=== PATIENT | male | born 1960 | race Asian ===

== ENCOUNTER 2023-06-18 09:43 | Inpatient (IN) | payer MEDICARE, MEDICAID ==
[2023-06-18] VITALS (50 sets, daily range): BP systolic 110–160; BP diastolic 64–95; PULSE 62–89; RESP 11–22; TEMP 98–98.5
[~2023-06-18] VITALS: Ht 162.6 cm; Wt 73.5 kg
[2023-06-18 09:55] LABS: HEMATOCRIT. 32.1 % (42.0-52.0); HEMOGLOBIN. 10.4 g/dL (14.0-18.0); MEAN CORPUSCULAR HEMOGLOBIN 27.1 pg (28.0-32.0); MEAN CORPUSCULAR HGB CONC 32.5 g/dL (31.0-37.0); MEAN CORPUSCULAR VOLUME 83.4 fL (80.0-94.0); MEAN PLATELET VOLUME 7.9 fl (7.4-10.4); PLATELET 524 x1000/uL (130-400); RED BLOOD CELL COUNT 3.85 mill/uL (4.7-6.1); WHITE BLOOD COUNT 23.7 x1000/uL (4.5-11.0)
[2023-06-18 10:10] LABS: DIFFERENTIAL COMMENT 1
[2023-06-18] MEDS ORDERED: LIDOCAINE HCL 1% 10 MG/ML 10ML VIAL ONE (10:17)
[2023-06-18] MEDS ORDERED: IODIXANOL 320MG/ML 100 ML BOTTLE IV ONE (10:17)
[2023-06-18] MEDS ORDERED: HEPARIN 1000 UNITS/ML 10ML ONE (10:17)
[2023-06-18] MEDS ORDERED: FENTANYL CITRATE/PF 50MCG/ML 2ML VIAL ONE (10:17)
[2023-06-18] MEDS ORDERED: MIDAZOLAM HCL 2 MG/2 ML VIAL ONE (10:17)
[2023-06-18 10:30] LABS: CHLORIDE 108 mEq/L (98-107); INDEX HEMOLYSI 1 (1-3); INDEX ICTERIC 1 (1-4); INDEX LIPEMIC 1 (1-3); SODIUM 134 mEq/L (136-145)
[2023-06-18 10:40] LABS: MICROCYTOSIS 1+; PLATELET ESTIMATE INCREASED
[2023-06-18 10:41] LABS: ALANINE AMINOTRANSFERASE 17 IU/L (13-61); ALBUMIN 2.4 g/dL (3.4-5.0); ASPARTATE AMINOTRANSFERASE 27 IU/L (15-37); BILIRUBIN TOTAL 0.3 mg/dL (0.1-1.0); CALCIUM 8.5 mg/dL (8.5-10.1); CARBON DIOXIDE 16 mEq/L (21-32); GLUCOSE 164 mg/dL (70-105); NT PRO B-TYPE NATRIURETIC PEP 2084 pg/mL (5-125); PROTEIN TOTAL 7.6 g/dL (6.0-8.3); ROULEAUX 1+; UREA NITROGEN BLOOD 54 mg/dL (7-21)
[2023-06-18 10:47] LABS: TROPONIN I HIGH SENSITIVITY 2962 ng/L (<78)
[2023-06-18] MEDS ORDERED: EPTIFIBATIDE 2 MG/ML 10ML VIAL IV ONE (10:56)
[2023-06-18] MEDS ORDERED: CLOPIDOGREL 75MG TABLET ONE (11:22)
[2023-06-18] MEDS ORDERED: CLOPIDOGREL 75MG TABLET PO NR (11:22)
[2023-06-18] MEDS ORDERED: ATROPINE SULFATE 1MG/10ML SYR IV PRN (11:30)
[2023-06-18] MEDS ORDERED: MORPHINE SULFATE 2 MG/ML CPJ (NOT FOR IM USE) IV PRN (11:30)
[2023-06-18] MEDS ORDERED: SODIUM CHLORIDE 0.45% 1,000 ML IV SCH (12:00)
[2023-06-18] MEDS ORDERED: ONDANSETRON HCL 4MG/2ML INJ IV PRN (12:15)
[2023-06-18] MEDS ORDERED: GUAIFENESIN 200MG/10ML SUGAR FREE UDC PO PRN (12:15)
[2023-06-18] MEDS ORDERED: HYDROCODONE/ACETAMINOPHEN 5/325MG TABLET PO PRN (12:15)
[2023-06-18] MEDS ORDERED: DIPHENHYDRAMINE 50MG/ML VIAL IV PRN (12:15)
[2023-06-18] MEDS ORDERED: DOCUSATE SODIUM 100MG CAPSULE PO PRN (12:15)
[2023-06-18] MEDS ORDERED: TRAMADOL 50MG TABLET PO PRN (12:15)
[2023-06-18] MEDS: TAMSULOSIN HCL 0.4MG SR CAPSULE PO SCH (12:35)
[2023-06-18] MEDS ORDERED: NALOXONE HCL 0.4MG/ML VIAL IV PRN (12:45)
[2023-06-18 13:36] LABS: BG BASE EXCESS -9.3 mmol/L (-2.0-2.0); BG CARBOXYHEMOGLOBIN 0.3 % (0.5-1.5); BG DEOXYHEMOGLOBIN 3.2 % (0.0-5.0); BG FRACTION INSPIRED OXYGEN 21; BG HCO3 ACT 14.9 mmol/L (22.0-26.0); BG METHEMOGLOBIN 0.3 % (0.0-1.5); BG OXYGEN SATURATION 96.8 % (92.0-98.5); BG OXYHEMOGLOBIN 96.2 % (94.0-97.0); BG PCO2 27.6 mmHg (35.0-45.0); BG PO2 98.8 mmHg (75.0-100.0); BG SAMPLE SITE LEFT RADIAL; BG TOTAL HEMOGLOBIN 11.9 g/dL (12.0-18.0); BG VENT MODE ROOM AIR
[2023-06-18] MEDS: CARVEDILOL 6.25 MG TABLET PO SCH (17:00)
[2023-06-18 18:03] LABS: POTASSIUM 5.4 mEq/L (3.5-5.1)
[2023-06-18 18:07] LABS: CALCIUM 8.1 mg/dL (8.5-10.1)
[2023-06-18 18:17] LABS: CREATININE 6.6 mg/dL (0.6-1.3)
[2023-06-18 19:02] LABS: HEPATITIS B SURFACE ANTIGEN NEGATIVE
[2023-06-18 19:30] LABS: HEPATITIS C VIR.AB 0.07 INDEXVAL (0.00-0.80)
[2023-06-18] MEDS ORDERED: TAMS-11 PO (19:53)
[2023-06-18] MEDS ORDERED: PROP10TA10 PO (19:53)
[2023-06-18] MEDS ORDERED: ASPI-1406 PO (19:53)
[2023-06-18] MEDS ORDERED: HYDR-4135 PO (19:53)
[2023-06-18] MEDS ORDERED: ISOS20TA8 PO (19:53)
[2023-06-18] MEDS ORDERED: NIFE20CA PO (19:53)
[2023-06-18] MEDS ORDERED: LEVVL SQ (19:54)
[2023-06-18] MEDS: ATORVASTATIN CALCIUM 40MG TABLET PO SCH (21:33)
[2023-06-18] MEDS: INSULIN LISPRO 100 UNITS/ML SUBCUT SCH (22:00)
[2023-06-18] MEDS ORDERED: DEXTROSE 50% WATER 50ML SYRINGE IV PRN (22:00)
[2023-06-19] VITALS (34 sets, daily range): BP systolic 96–165; BP diastolic 44–90; PULSE 54–89; RESP 11–27; TEMP 98.2–100.2
[2023-06-19] MEDS ORDERED: SODIUM POLYSTYRENE SULFONATE 15 G/60 ML BOT PO NR (03:00)
[2023-06-19 03:59] LABS: BASOPHILS % 0.3 % (0.0-2.0); CHLORIDE 110 mEq/L (98-107); EOSINOPHILS % 0.7 % (0.0-5.0); HEMATOCRIT. 27.6 % (42.0-52.0); INDEX HEMOLYSI 1 (1-3); INDEX ICTERIC 1 (1-4); INDEX LIPEMIC 1 (1-3); LYMPHOCYTES % 9.7 % (20.0-50.0); MEAN CORPUSCULAR HEMOGLOBIN 27.2 pg (28.0-32.0); MEAN CORPUSCULAR HGB CONC 32.7 g/dL (31.0-37.0); MONOCYTES % 6.2 % (2.0-8.0); NEUTROPHILS % 83.1 % (40.0-76.0); PLATELET 478 x1000/uL (130-400); POTASSIUM 4.9 mEq/L (3.5-5.1); RED BLOOD CELL COUNT 3.33 mill/uL (4.7-6.1); SODIUM 132 mEq/L (136-145); WHITE BLOOD COUNT 14.7 x1000/uL (4.5-11.0)
[2023-06-19 04:08] LABS: ALANINE AMINOTRANSFERASE 31 IU/L (13-61); ALBUMIN 1.8 g/dL (3.4-5.0); ASPARTATE AMINOTRANSFERASE 139 IU/L (15-37); BILIRUBIN TOTAL 0.3 mg/dL (0.1-1.0); CALCIUM 8.2 mg/dL (8.5-10.1); CARBON DIOXIDE 13 mEq/L (21-32); CHOLESTEROL 134 mg/dL (<200); CREATINE KINASE 780 IU/L (39-308); GLUCOSE 126 mg/dL (70-105); HDL CHOLESTEROL 31 mg/dL (40-59); LDL CHOLESTEROL 90 mg/dL (5-100); PHOSPHORUS 4.1 mg/dL (2.5-4.9); PROTEIN TOTAL 6.7 g/dL (6.0-8.3); TRIGLYCERIDE 153 mg/dL (0-150); UREA NITROGEN BLOOD 51 mg/dL (7-21)
[2023-06-19 04:12] LABS: CREATININE 5.8 mg/dL (0.6-1.3)
[2023-06-19] MEDS ORDERED: MAGNESIUM 2 G PREMIX 50 ML IV NR (05:15)
[2023-06-19] MEDS: INSULIN LISPRO 100 UNITS/ML SUBCUT SCH ×4 (07:50→21:00)
[2023-06-19] MEDS: BLOOD SUGAR DIAGNOSTIC STRIP TEST SCH ×4 (08:14→21:42)
[2023-06-19] MEDS: ASPIRIN 325MG TABLET PO SCH (08:26)
[2023-06-19] MEDS: CLOPIDOGREL 75MG TABLET PO SCH (08:27)
[2023-06-19] MEDS: CARVEDILOL 6.25 MG TABLET PO SCH ×2 (08:28→16:57)
[2023-06-19] MEDS: TAMSULOSIN HCL 0.4MG SR CAPSULE PO SCH (08:30)
[2023-06-19] MEDS ORDERED: MAGNESIUM 2 G PREMIX 50 ML IV ONE (12:15)
[2023-06-19 14:29] LABS: BG BASE EXCESS -10.1 mmol/L (-2.0-2.0); BG CARBOXYHEMOGLOBIN 0.3 % (0.5-1.5); BG DEOXYHEMOGLOBIN 3.1 % (0.0-5.0); BG FRACTION INSPIRED OXYGEN 21; BG HCO3 ACT 14.7 mmol/L (22.0-26.0); BG METHEMOGLOBIN 0.3 % (0.0-1.5); BG OXYGEN SATURATION 96.9 % (92.0-98.5); BG OXYHEMOGLOBIN 96.3 % (94.0-97.0); BG PCO2 28.7 mmHg (35.0-45.0); BG PH 7.326 (7.350-7.450); BG SAMPLE SITE LEFT BRACHIAL; BG TOTAL HEMOGLOBIN 10.1 g/dL (12.0-18.0); BG VENT MODE ROOM AIR
[2023-06-19] MEDS: SODIUM CHLORIDE 0.9% 1,000 ML IV SCH (15:00)
[2023-06-19 16:40] LABS: CLARITY URINE CLEAR (CLEAR); COLOR URINE YELLOW (YELLOW); GLUCOSE URINE 1+ (NEGATIVE); KETONES URINE NEGATIVE (NEGATIVE); LEUKOCYTE ESTERASE URINE NEGATIVE (NEGATIVE); NITRITE URINE NEGATIVE (NEGATIVE); OCCULT BLOOD URINE TRACE (NEGATIVE); PH URINE 5.5 (4.5-8.0); PROTEIN URINE 4+ (NEGATIVE); SPECIFIC GRAVITY URINE 1.016 (1.005-1.030); UROBILINOGEN URINE 0.2 E.U./dL (0.2-1.0)
[2023-06-19] MEDS: ACETAMINOPHEN 325MG TABLET PO PRN (16:40)
[2023-06-19 16:43] LABS: RBC URINE 0-2 /hpf (0-2); YEAST URINE NONE SEEN
[2023-06-19 16:58] LABS: SQUAMOUS EPITHELIAL CELL URINE FEW /lpf (RARE/1+)
[2023-06-19 16:59] LABS: BACTERIA URINE 1+; WBC URINE 0-2 /hpf (0-2)
[2023-06-19] MEDS ORDERED: CEFEPIME 500 MG in DEXTROSE 5% WATER 50 ML IV SCH (17:30)
[2023-06-19] MEDS ORDERED: VANCOMYCIN 1500MG in DEXTROSE 5% WATER 250ML IV NR (18:00)
[2023-06-19] MEDS: CITRIC ACID/SODIUM CITRATE SOLN 30ML UDC PO SCH (18:23)
[2023-06-19] MEDS: ATORVASTATIN CALCIUM 40MG TABLET PO SCH (21:35)
[2023-06-20] VITALS (8 sets, daily range): BP systolic 114–138; BP diastolic 66–78; PULSE 47–80; RESP 12–21; TEMP 97.8–100
[2023-06-20] MEDS: INSULIN LISPRO 100 UNITS/ML SUBCUT SCH ×4 (06:50→22:10)
[2023-06-20] MEDS: TAMSULOSIN HCL 0.4MG SR CAPSULE PO SCH (08:50)
[2023-06-20] MEDS: ASPIRIN 325MG TABLET PO SCH (08:51)
[2023-06-20] MEDS: CITRIC ACID/SODIUM CITRATE SOLN 30ML UDC PO SCH ×3 (08:52→17:45)
[2023-06-20] MEDS: CARVEDILOL 6.25 MG TABLET PO SCH ×2 (08:53→17:00)
[2023-06-20] MEDS: CLOPIDOGREL 75MG TABLET PO SCH (08:53)
[2023-06-20] MEDS: BLOOD SUGAR DIAGNOSTIC STRIP TEST SCH ×4 (10:50→20:59)
[2023-06-20] MEDS: CEFEPIME 1,000 MG in DEXTROSE 5% WATER 50 ML IV SCH (13:58)
[2023-06-20] MEDS: SODIUM CHLORIDE 0.9% 1,000 ML IV SCH (13:58)
[2023-06-20] MEDS ORDERED: CEFEPIME 1,000 MG in DEXTROSE 5% WATER 50 ML IV SCH (16:00)
[2023-06-20 18:03] LABS: HEMATOCRIT. 27.8 % (42.0-52.0); MEAN CORPUSCULAR HEMOGLOBIN 27.4 pg (28.0-32.0); MEAN CORPUSCULAR HGB CONC 32.4 g/dL (31.0-37.0); MEAN CORPUSCULAR VOLUME 84.4 fL (80.0-94.0); MEAN PLATELET VOLUME 8.3 fl (7.4-10.4); PLATELET 385 x1000/uL (130-400); RED BLOOD CELL COUNT 3.29 mill/uL (4.7-6.1); WHITE BLOOD COUNT 21.1 x1000/uL (4.5-11.0)
[2023-06-20 18:05] LABS: DIFFERENTIAL COMMENT 1
[2023-06-20 18:13] LABS: POTASSIUM 5.5 mEq/L (3.5-5.1)
[2023-06-20 18:18] LABS: PHOSPHORUS 3.3 mg/dL (2.5-4.9)
[2023-06-20 18:31] LABS: PLATELET ESTIMATE NORMAL
[2023-06-20] MEDS ORDERED: SODIUM POLYSTYRENE SULFONATE 15 G/60 ML BOT PO NR (20:45)
[2023-06-20] MEDS: ATORVASTATIN CALCIUM 40MG TABLET PO SCH (21:03)
[2023-06-20] MEDS: ACETAMINOPHEN 325MG TABLET PO PRN (23:16)
[2023-06-21] VITALS (16 sets, daily range): BP systolic 117–169; BP diastolic 62–84; PULSE 48–84; RESP 12–24; TEMP 97.2–101.1; O2SAT 98
[2023-06-21] MEDS: IPRATROPIUM/ALBUTEROL 0.5-3(2.5)MG/3ML NEB HHN PRN ×2 (00:11→00:12)
[2023-06-21] MEDS: BLOOD SUGAR DIAGNOSTIC STRIP TEST SCH ×4 (06:01→21:00)
[2023-06-21] MEDS: SODIUM CHLORIDE 0.9% 1,000 ML IV SCH (06:06)
[2023-06-21 06:33] LABS: BASOPHILS % 0.1 % (0.0-2.0); EOSINOPHILS % 0.1 % (0.0-5.0); HEMATOCRIT. 26.6 % (42.0-52.0); HEMOGLOBIN. 8.7 g/dL (14.0-18.0); LYMPHOCYTES % 7.1 % (20.0-50.0); MEAN CORPUSCULAR HEMOGLOBIN 27.1 pg (28.0-32.0); MEAN CORPUSCULAR HGB CONC 32.6 g/dL (31.0-37.0); MEAN CORPUSCULAR VOLUME 83.2 fL (80.0-94.0); MEAN PLATELET VOLUME 8.3 fl (7.4-10.4); MONOCYTES % 7.8 % (2.0-8.0); NEUTROPHILS % 84.9 % (40.0-76.0); PLATELET 383 x1000/uL (130-400); RED CELL DISTRIBUTION WIDTH 14.4 % (11.6-14.6); WHITE BLOOD COUNT 18.4 x1000/uL (4.5-11.0)
[2023-06-21 06:35] LABS: CHLORIDE 109 mEq/L (98-107); INDEX HEMOLYSI 1 (1-3); INDEX ICTERIC 1 (1-4); INDEX LIPEMIC 1 (1-3); POTASSIUM 4.4 mEq/L (3.5-5.1); SODIUM 134 mEq/L (136-145)
[2023-06-21 06:46] LABS: ALANINE AMINOTRANSFERASE 27 IU/L (13-61); ALBUMIN 1.9 g/dL (3.4-5.0); ASPARTATE AMINOTRANSFERASE 64 IU/L (15-37); BILIRUBIN TOTAL 0.5 mg/dL (0.1-1.0); CALCIUM 7.7 mg/dL (8.5-10.1); CARBON DIOXIDE 17 mEq/L (21-32); GLUCOSE 121 mg/dL (70-105); PHOSPHORUS 3.9 mg/dL (2.5-4.9); PROTEIN TOTAL 6.8 g/dL (6.0-8.3); UREA NITROGEN BLOOD 54 mg/dL (7-21)
[2023-06-21] MEDS: INSULIN LISPRO 100 UNITS/ML SUBCUT SCH ×4 (06:50→21:28)
[2023-06-21 07:22] LABS: CREATININE 6.1 mg/dL (0.6-1.3)
[2023-06-21] MEDS: CARVEDILOL 6.25 MG TABLET PO SCH ×2 (09:00→17:00)
[2023-06-21] MEDS: ASPIRIN 325MG TABLET PO SCH (09:25)
[2023-06-21] MEDS: CLOPIDOGREL 75MG TABLET PO SCH (09:25)
[2023-06-21] MEDS: TAMSULOSIN HCL 0.4MG SR CAPSULE PO SCH (09:26)
[2023-06-21] MEDS: CITRIC ACID/SODIUM CITRATE SOLN 30ML UDC PO SCH ×3 (09:27→17:00)
[2023-06-21] MEDS ORDERED: LIDOCAINE HCL 1% 10 MG/ML 10ML VIAL ONE ×2 (12:00→13:31)
[2023-06-21 12:06] LABS: INR 1.1; PARTIAL THROMBOPLASTIN TIME 33.3 sec (23.4-31.0); PROTHROMBIN TIME 11.8 sec (9.6-11.0)
[2023-06-21] MEDS ORDERED: VANCOMYCIN 500MG PREMIX 100 ML IV SCH (16:00)
[2023-06-21] MEDS: CEFEPIME 1,000 MG in DEXTROSE 5% WATER 50 ML IV SCH (16:03)
[2023-06-21 18:07] LABS: HEPATITIS B SURFACE ANTIGEN NEGATIVE
[2023-06-21 18:36] LABS: HEPATITIS C VIR.AB 0.09 INDEXVAL (0.00-0.80)
[2023-06-21 19:14] LABS: HEPATITIS A AB IGM NEGATIVE (NEGATIVE)
[2023-06-21 19:20] LABS: HEPATITIS B CORE AB IGM NEGATIVE
[2023-06-21] MEDS: ATORVASTATIN CALCIUM 40MG TABLET PO SCH (21:28)
[2023-06-22] VITALS (7 sets, daily range): BP systolic 137–159; BP diastolic 69–90; PULSE 56–76; RESP 12–19; TEMP 97.7–100
[2023-06-22] MEDS: ACETAMINOPHEN 325MG TABLET PO PRN (06:12)
[2023-06-22] MEDS: INSULIN LISPRO 100 UNITS/ML SUBCUT SCH ×4 (06:22→21:00)
[2023-06-22] MEDS: BLOOD SUGAR DIAGNOSTIC STRIP TEST SCH ×4 (06:22→16:50)
[2023-06-22 07:36] LABS: HEMATOCRIT. 29.5 % (42.0-52.0); HEMOGLOBIN. 9.9 g/dL (14.0-18.0); MEAN CORPUSCULAR HEMOGLOBIN 27.9 pg (28.0-32.0); MEAN CORPUSCULAR HGB CONC 33.5 g/dL (31.0-37.0); MEAN CORPUSCULAR VOLUME 83.2 fL (80.0-94.0); MEAN PLATELET VOLUME 8.8 fl (7.4-10.4); PLATELET 368 x1000/uL (130-400); RED BLOOD CELL COUNT 3.54 mill/uL (4.7-6.1)
[2023-06-22 07:48] LABS: DIFFERENTIAL COMMENT 1
[2023-06-22] MEDS: TAMSULOSIN HCL 0.4MG SR CAPSULE PO SCH (08:50)
[2023-06-22] MEDS: CARVEDILOL 6.25 MG TABLET PO SCH ×2 (09:00→17:19)
[2023-06-22] MEDS: ASPIRIN 325MG TABLET PO SCH (09:00)
[2023-06-22] MEDS: CLOPIDOGREL 75MG TABLET PO SCH (09:00)
[2023-06-22] MEDS: CITRIC ACID/SODIUM CITRATE SOLN 30ML UDC PO SCH ×3 (09:02→17:16)
[2023-06-22] MEDS: CEFEPIME 1,000 MG in DEXTROSE 5% WATER 50 ML IV SCH ×2 (13:33→13:48)
[2023-06-22 16:36] LABS: PLATELET ESTIMATE NORMAL
[2023-06-22 17:58] LABS: POTASSIUM 4.7 mEq/L (3.5-5.1)
[2023-06-22 18:03] LABS: CALCIUM 8.3 mg/dL (8.5-10.1); CREATININE 3.7 mg/dL (0.6-1.3); PHOSPHORUS 3.3 mg/dL (2.5-4.9)
[2023-06-22] MEDS: ATORVASTATIN CALCIUM 40MG TABLET PO SCH (21:26)
[2023-06-23] VITALS (16 sets, daily range): BP systolic 134–176; BP diastolic 68–94; PULSE 55–64; RESP 10–17; TEMP 98.4–99.2
[2023-06-23] MEDS: INSULIN LISPRO 100 UNITS/ML SUBCUT SCH ×4 (06:50→21:59)
[2023-06-23] MEDS: BLOOD SUGAR DIAGNOSTIC STRIP TEST SCH ×4 (06:56→21:43)
[2023-06-23 07:37] LABS: BASOPHILS % 0.2 % (0.0-2.0); EOSINOPHILS % 0.9 % (0.0-5.0); HEMATOCRIT. 26.3 % (42.0-52.0); HEMOGLOBIN. 8.8 g/dL (14.0-18.0); LYMPHOCYTES % 11.2 % (20.0-50.0); MEAN CORPUSCULAR HEMOGLOBIN 28.1 pg (28.0-32.0); MEAN CORPUSCULAR HGB CONC 33.3 g/dL (31.0-37.0); MEAN CORPUSCULAR VOLUME 84.3 fL (80.0-94.0); MEAN PLATELET VOLUME 8.8 fl (7.4-10.4); NEUTROPHILS % 75.7 % (40.0-76.0); PLATELET 304 x1000/uL (130-400); RED BLOOD CELL COUNT 3.12 mill/uL (4.7-6.1); RED CELL DISTRIBUTION WIDTH 13.8 % (11.6-14.6); WHITE BLOOD COUNT 11.4 x1000/uL (4.5-11.0)
[2023-06-23 08:05] LABS: POTASSIUM 4.3 mEq/L (3.5-5.1)
[2023-06-23 08:20] LABS: CALCIUM 7.7 mg/dL (8.5-10.1); CREATININE 4.1 mg/dL (0.6-1.3); PHOSPHORUS 3.2 mg/dL (2.5-4.9)
[2023-06-23] MEDS: CLOPIDOGREL 75MG TABLET PO SCH (09:08)
[2023-06-23] MEDS: CITRIC ACID/SODIUM CITRATE SOLN 30ML UDC PO SCH (09:08)
[2023-06-23] MEDS: TAMSULOSIN HCL 0.4MG SR CAPSULE PO SCH (09:09)
[2023-06-23] MEDS: ASPIRIN 325MG TABLET PO SCH (09:09)
[2023-06-23] MEDS: CARVEDILOL 6.25 MG TABLET PO SCH ×2 (09:09→17:00)
[2023-06-23] MEDS: CEFEPIME 1,000 MG in DEXTROSE 5% WATER 50 ML IV SCH (13:43)
[2023-06-23] MEDS ORDERED: VANCOMYCIN 500MG PREMIX 100 ML IV NR (18:00)
[2023-06-23] MEDS: ATORVASTATIN CALCIUM 40MG TABLET PO SCH (21:59)
[2023-06-23] MEDS: EPOETIN ALFA 4000UNITS/ML VIAL SUBCUT SCH (22:00)
[2023-06-23] MEDS: CLONIDINE 0.1MG TABLET PO PRN (22:34)
[2023-06-24] VITALS: BP 146/76; PULSE 67; RESP 14; TEMP 98.5
[2023-06-24 04:00] VITALS: BP 136/84; PULSE 51; RESP 12; TEMP 98.2
[2023-06-24] MEDS: BLOOD SUGAR DIAGNOSTIC STRIP TEST SCH ×4 (06:42→20:36)
[2023-06-24] MEDS: INSULIN LISPRO 100 UNITS/ML SUBCUT SCH ×4 (06:50→20:36)
[2023-06-24 08:00] VITALS: BP 153/71; PULSE 54; RESP 16; TEMP 98
[2023-06-24 08:02] LABS: BASOPHILS % 0.5 % (0.0-2.0); EOSINOPHILS % 1.2 % (0.0-5.0); HEMATOCRIT. 26.3 % (42.0-52.0); HEMOGLOBIN. 8.7 g/dL (14.0-18.0); LYMPHOCYTES % 13.7 % (20.0-50.0); MEAN CORPUSCULAR HEMOGLOBIN 27.8 pg (28.0-32.0); MEAN CORPUSCULAR HGB CONC 33.2 g/dL (31.0-37.0); MEAN CORPUSCULAR VOLUME 83.7 fL (80.0-94.0); MEAN PLATELET VOLUME 8.8 fl (7.4-10.4); MONOCYTES % 12.1 % (2.0-8.0); NEUTROPHILS % 72.5 % (40.0-76.0); PLATELET 325 x1000/uL (130-400); RED BLOOD CELL COUNT 3.14 mill/uL (4.7-6.1); RED CELL DISTRIBUTION WIDTH 13.6 % (11.6-14.6); WHITE BLOOD COUNT 9.2 x1000/uL (4.5-11.0)
[2023-06-24 08:40] LABS: CHLORIDE 104 mEq/L (98-107); INDEX HEMOLYSI 1 (1-3); INDEX ICTERIC 1 (1-4); INDEX LIPEMIC 1 (1-3); POTASSIUM 4.2 mEq/L (3.5-5.1); SODIUM 137 mEq/L (136-145)
[2023-06-24 08:48] LABS: ALANINE AMINOTRANSFERASE 24 IU/L (13-61); ALBUMIN 1.9 g/dL (3.4-5.0); ASPARTATE AMINOTRANSFERASE 32 IU/L (15-37); BILIRUBIN TOTAL 0.4 mg/dL (0.1-1.0); CALCIUM 7.9 mg/dL (8.5-10.1); CARBON DIOXIDE 30 mEq/L (21-32); CREATININE 3.4 mg/dL (0.6-1.3); GLUCOSE 110 mg/dL (70-105); PHOSPHORUS 3.3 mg/dL (2.5-4.9); PROTEIN TOTAL 6.5 g/dL (6.0-8.3); UREA NITROGEN BLOOD 26 mg/dL (7-21)
[2023-06-24] MEDS: TAMSULOSIN HCL 0.4MG SR CAPSULE PO SCH (08:58)
[2023-06-24] MEDS: ASPIRIN 325MG TABLET PO SCH (08:58)
[2023-06-24] MEDS: CARVEDILOL 6.25 MG TABLET PO SCH ×2 (08:58→17:23)
[2023-06-24] MEDS: CLOPIDOGREL 75MG TABLET PO SCH (08:58)
[2023-06-24 12:00] VITALS: BP_SYST 124; BP_SYST 153; BP_DIAS 71; BP_DIAS 87; PULSE 55; RESP 18; TEMP 98
[2023-06-24] MEDS: CEFEPIME 1,000 MG in DEXTROSE 5% WATER 50 ML IV SCH (13:37)
[2023-06-24 16:00] VITALS: BP 142/96; PULSE 61; RESP 17; TEMP 98.4
[2023-06-24] MEDS: ACETAMINOPHEN 325MG TABLET PO PRN (17:24)
[2023-06-24 20:00] VITALS: BP 141/67; PULSE 55; RESP 15; TEMP 98.6
[2023-06-24] MEDS: ATORVASTATIN CALCIUM 40MG TABLET PO SCH (20:40)
[2023-06-24] MEDS ORDERED: LOSARTAN 25 MG TABLET PO SCH (21:00)
[2023-06-25] VITALS: BP 122/72; PULSE 62; RESP 17; TEMP 98.4
[2023-06-25 04:00] VITALS: BP 154/79; PULSE 49; RESP 18; TEMP 98.4
[2023-06-25] MEDS: BLOOD SUGAR DIAGNOSTIC STRIP TEST SCH ×4 (06:09→20:16)
[2023-06-25] MEDS: INSULIN LISPRO 100 UNITS/ML SUBCUT SCH ×4 (06:29→20:37)
[2023-06-25 08:00] VITALS: BP 157/91; PULSE 65; RESP 19; TEMP 98.1
[2023-06-25] MEDS: ASPIRIN 325MG TABLET PO SCH (08:33)
[2023-06-25] MEDS: TAMSULOSIN HCL 0.4MG SR CAPSULE PO SCH (08:35)
[2023-06-25] MEDS: CARVEDILOL 6.25 MG TABLET PO SCH (08:36)
[2023-06-25] MEDS: CLOPIDOGREL 75MG TABLET PO SCH (08:36)
[2023-06-25 12:00] VITALS: BP 146/65; PULSE 62; RESP 15; TEMP 97.9
[2023-06-25 16:00] VITALS: BP 176/87; PULSE 65; RESP 13; TEMP 98
[2023-06-25] MEDS: CLONIDINE 0.1MG TABLET PO PRN (17:06)
[2023-06-25] MEDS: CARVEDILOL 3.125 MG TABLET PO SCH (17:06)
[2023-06-25 20:00] VITALS: BP 163/78; RESP 16; TEMP 98.3
[2023-06-25] MEDS: ATORVASTATIN CALCIUM 40MG TABLET PO SCH (20:25)
[2023-06-25] MEDS: LOSARTAN 50 MG TABLET PO SCH (20:26)
[2023-06-26] VITALS (23 sets, daily range): BP systolic 131–187; BP diastolic 69–93; PULSE 52–68; RESP 11–20; TEMP 98–99.6
[2023-06-26] MEDS: BLOOD SUGAR DIAGNOSTIC STRIP TEST SCH ×4 (06:11→21:00)
[2023-06-26] MEDS: INSULIN LISPRO 100 UNITS/ML SUBCUT SCH ×4 (06:12→21:05)
[2023-06-26 06:58] LABS: BASOPHILS % 0.7 % (0.0-2.0); EOSINOPHILS % 1.5 % (0.0-5.0); HEMATOCRIT. 27.1 % (42.0-52.0); HEMOGLOBIN. 8.9 g/dL (14.0-18.0); LYMPHOCYTES % 16.9 % (20.0-50.0); MEAN CORPUSCULAR HEMOGLOBIN 27.6 pg (28.0-32.0); MEAN CORPUSCULAR HGB CONC 32.9 g/dL (31.0-37.0); MEAN CORPUSCULAR VOLUME 83.9 fL (80.0-94.0); MEAN PLATELET VOLUME 8.7 fl (7.4-10.4); NEUTROPHILS % 71.9 % (40.0-76.0); PLATELET 341 x1000/uL (130-400); RED BLOOD CELL COUNT 3.23 mill/uL (4.7-6.1); RED CELL DISTRIBUTION WIDTH 13.7 % (11.6-14.6); WHITE BLOOD COUNT 8.6 x1000/uL (4.5-11.0)
[2023-06-26] MEDS ORDERED: LIDOCAINE HCL 1% 10 MG/ML 10ML VIAL ONE ×2 (07:13→07:23)
[2023-06-26] MEDS ORDERED: FENTANYL CITRATE/PF 50MCG/ML 2ML VIAL ONE (07:35)
[2023-06-26 08:54] LABS: POTASSIUM 4.2 mEq/L (3.5-5.1)
[2023-06-26] MEDS: ASPIRIN 325MG TABLET PO SCH (08:59)
[2023-06-26] MEDS: TAMSULOSIN HCL 0.4MG SR CAPSULE PO SCH (08:59)
[2023-06-26] MEDS: CLOPIDOGREL 75MG TABLET PO SCH (08:59)
[2023-06-26] MEDS: CARVEDILOL 3.125 MG TABLET PO SCH ×2 (08:59→16:32)
[2023-06-26 09:06] LABS: CALCIUM 6.8 mg/dL (8.5-10.1); CREATININE 3.3 mg/dL (0.6-1.3); PHOSPHORUS 2.9 mg/dL (2.5-4.9)
[2023-06-26] MEDS ORDERED: FENTANYL CITRATE/PF 50MCG/ML 2ML VIAL IV ONE (09:30)
[2023-06-26] MEDS: ACETAMINOPHEN 325MG TABLET PO PRN (16:32)
[2023-06-26] MEDS: LOSARTAN 50 MG TABLET PO SCH (21:04)
[2023-06-26] MEDS: ATORVASTATIN CALCIUM 40MG TABLET PO SCH (21:04)
[2023-06-26] MEDS: EPOETIN ALFA 4000UNITS/ML VIAL SUBCUT SCH (21:05)
[2023-06-27] VITALS: BP 140/89; PULSE 57; RESP 15; TEMP 99.1
[2023-06-27 04:00] VITALS: BP 152/76; PULSE 54; RESP 20; TEMP 98.9
[2023-06-27] MEDS: INSULIN LISPRO 100 UNITS/ML SUBCUT SCH ×5 (06:44→21:57)
[2023-06-27] MEDS: BLOOD SUGAR DIAGNOSTIC STRIP TEST SCH ×5 (06:44→21:40)
[2023-06-27 07:13] LABS: BASOPHILS % 0.6 % (0.0-2.0); HEMATOCRIT. 28.5 % (42.0-52.0); HEMOGLOBIN. 9.6 g/dL (14.0-18.0); LYMPHOCYTES % 13.2 % (20.0-50.0); MEAN CORPUSCULAR HGB CONC 33.5 g/dL (31.0-37.0); MEAN CORPUSCULAR VOLUME 83.6 fL (80.0-94.0); NEUTROPHILS % 76.2 % (40.0-76.0); PLATELET 327 x1000/uL (130-400); RED BLOOD CELL COUNT 3.41 mill/uL (4.7-6.1); RED CELL DISTRIBUTION WIDTH 13.7 % (11.6-14.6); WHITE BLOOD COUNT 10.3 x1000/uL (4.5-11.0)
[2023-06-27 08:00] VITALS: BP 152/76; PULSE 62; RESP 22; TEMP 99
[2023-06-27] MEDS: CARVEDILOL 3.125 MG TABLET PO SCH ×2 (10:30→17:00)
[2023-06-27] MEDS: ASPIRIN 325MG TABLET PO SCH (10:30)
[2023-06-27] MEDS: CLOPIDOGREL 75MG TABLET PO SCH (10:31)
[2023-06-27] MEDS: TAMSULOSIN HCL 0.4MG SR CAPSULE PO SCH (10:32)
[2023-06-27 12:00] VITALS: BP 143/67; PULSE 68; RESP 20; TEMP 99.3
[2023-06-27] MEDS: ONDANSETRON HCL 4MG/2ML INJ IV PRN ×2 (15:23→15:26)
[2023-06-27 16:00] VITALS: BP 138/68; PULSE 70; RESP 19; TEMP 101.3
[2023-06-27 17:12] LABS: POTASSIUM 4.2 mEq/L (3.5-5.1)
[2023-06-27 17:36] LABS: CALCIUM 8.9 mg/dL (8.5-10.1); CREATININE 3.6 mg/dL (0.6-1.3); PHOSPHORUS 3.2 mg/dL (2.5-4.9)
[2023-06-27 20:00] VITALS: BP 151/77; PULSE 73; RESP 20; TEMP 102.2
[2023-06-27] MEDS: ATORVASTATIN CALCIUM 40MG TABLET PO SCH (21:51)
[2023-06-27] MEDS: LOSARTAN 50 MG TABLET PO SCH (21:51)
[2023-06-27] MEDS: ACETAMINOPHEN 325MG TABLET PO PRN (23:21)
[2023-06-28] VITALS: BP 146/68; PULSE 65; RESP 20; TEMP 102.2
[2023-06-28 04:00] VITALS: BP 134/67; PULSE 55; RESP 20; TEMP 97.5
[2023-06-28 06:49] LABS: BASOPHILS % 0.6 % (0.0-2.0); HEMATOCRIT. 28.6 % (42.0-52.0); HEMOGLOBIN. 9.5 g/dL (14.0-18.0); LYMPHOCYTES % 16.3 % (20.0-50.0); MEAN CORPUSCULAR HGB CONC 33.3 g/dL (31.0-37.0); MEAN CORPUSCULAR VOLUME 83.9 fL (80.0-94.0); MEAN PLATELET VOLUME 8.6 fl (7.4-10.4); MONOCYTES % 9.1 % (2.0-8.0); PLATELET 299 x1000/uL (130-400); RED BLOOD CELL COUNT 3.41 mill/uL (4.7-6.1); RED CELL DISTRIBUTION WIDTH 13.5 % (11.6-14.6); WHITE BLOOD COUNT 8.6 x1000/uL (4.5-11.0)
[2023-06-28 07:08] LABS: POTASSIUM 4.2 mEq/L (3.5-5.1)
[2023-06-28 07:14] LABS: CALCIUM 8.9 mg/dL (8.5-10.1); CREATININE 4.2 mg/dL (0.6-1.3); PHOSPHORUS 4.3 mg/dL (2.5-4.9)
[2023-06-28] MEDS: INSULIN LISPRO 100 UNITS/ML SUBCUT SCH ×4 (07:20→21:12)
[2023-06-28] MEDS: BLOOD SUGAR DIAGNOSTIC STRIP TEST SCH ×4 (07:20→20:53)
[2023-06-28 08:00] VITALS: BP 115/82; PULSE 59; RESP 19; TEMP 98.1
[2023-06-28] MEDS: TAMSULOSIN HCL 0.4MG SR CAPSULE PO SCH (09:00)
[2023-06-28] MEDS: CARVEDILOL 3.125 MG TABLET PO SCH ×2 (09:19→17:00)
[2023-06-28] MEDS: CLOPIDOGREL 75MG TABLET PO SCH (09:19)
[2023-06-28] MEDS: ASPIRIN 325MG TABLET PO SCH (09:19)
[2023-06-28 12:00] VITALS: BP 164/71; PULSE 57; RESP 19; TEMP 99
[2023-06-28 16:00] VITALS: BP 143/69; PULSE 59; RESP 19; TEMP 97.9
[2023-06-28] MEDS: ACETAMINOPHEN 325MG TABLET PO PRN (17:33)
[2023-06-28 20:00] VITALS: BP 148/69; PULSE 65; RESP 18; TEMP 99.4
[2023-06-28] MEDS: ATORVASTATIN CALCIUM 40MG TABLET PO SCH (21:07)
[2023-06-28] MEDS: LOSARTAN 50 MG TABLET PO SCH (21:08)
[2023-06-28] MEDS: EPOETIN ALFA 4000UNITS/ML VIAL SUBCUT SCH (21:22)
[2023-06-29] VITALS (12 sets, daily range): BP systolic 96–164; BP diastolic 59–78; PULSE 55–78; RESP 18–22; TEMP 96.8–98.5
[2023-06-29] MEDS: BLOOD SUGAR DIAGNOSTIC STRIP TEST SCH ×4 (06:24→21:00)
[2023-06-29 07:15] LABS: BASOPHILS % 0.6 % (0.0-2.0); EOSINOPHILS % 1.4 % (0.0-5.0); HEMATOCRIT. 28.9 % (42.0-52.0); HEMOGLOBIN. 9.7 g/dL (14.0-18.0); LYMPHOCYTES % 16.1 % (20.0-50.0); MEAN CORPUSCULAR HGB CONC 33.5 g/dL (31.0-37.0); MEAN CORPUSCULAR VOLUME 83.4 fL (80.0-94.0); MEAN PLATELET VOLUME 8.8 fl (7.4-10.4); NEUTROPHILS % 71.9 % (40.0-76.0); PLATELET 326 x1000/uL (130-400); RED BLOOD CELL COUNT 3.47 mill/uL (4.7-6.1)
[2023-06-29] MEDS: INSULIN LISPRO 100 UNITS/ML SUBCUT SCH ×4 (07:20→21:00)
[2023-06-29 08:29] LABS: POTASSIUM 4.3 mEq/L (3.5-5.1)
[2023-06-29 08:38] LABS: CALCIUM 8.9 mg/dL (8.5-10.1); CREATININE 4.6 mg/dL (0.6-1.3); PHOSPHORUS 4.2 mg/dL (2.5-4.9)
[2023-06-29] MEDS: CARVEDILOL 3.125 MG TABLET PO SCH ×2 (09:00→17:00)
[2023-06-29] MEDS: TAMSULOSIN HCL 0.4MG SR CAPSULE PO SCH (09:12)
[2023-06-29] MEDS: CLOPIDOGREL 75MG TABLET PO SCH (09:12)
[2023-06-29] MEDS: ASPIRIN 325MG TABLET PO SCH (09:12)
[2023-06-29] MEDS: ACETAMINOPHEN 325MG TABLET PO PRN (09:13)
[2023-06-29] MEDS: ATORVASTATIN CALCIUM 40MG TABLET PO SCH (21:41)
[2023-06-29] MEDS: LOSARTAN 50 MG TABLET PO SCH (21:41)
[2023-06-30] VITALS: BP 138/70; PULSE 63; RESP 17; TEMP 98.8
[2023-06-30 04:00] VITALS: BP 142/67; PULSE 60; RESP 20; TEMP 97.1
[2023-06-30] MEDS: INSULIN LISPRO 100 UNITS/ML SUBCUT SCH ×4 (07:20→21:09)
[2023-06-30] MEDS: BLOOD SUGAR DIAGNOSTIC STRIP TEST SCH ×4 (07:20→21:02)
[2023-06-30 08:00] VITALS: BP 159/75; PULSE 62; RESP 20; TEMP 98.1
[2023-06-30] MEDS: CARVEDILOL 3.125 MG TABLET PO SCH ×2 (09:18→18:54)
[2023-06-30] MEDS: ASPIRIN 325MG TABLET PO SCH (09:18)
[2023-06-30] MEDS: TAMSULOSIN HCL 0.4MG SR CAPSULE PO SCH (09:19)
[2023-06-30] MEDS: CLOPIDOGREL 75MG TABLET PO SCH (09:19)
[2023-06-30 12:00] VITALS: BP 139/69; PULSE 58; RESP 20; TEMP 98.1
[2023-06-30 16:00] VITALS: BP 114/65; PULSE 60; RESP 20; TEMP 98.8
[2023-06-30 20:00] VITALS: BP 134/62; PULSE 60; RESP 16; TEMP 97.1
[2023-06-30] MEDS: ATORVASTATIN CALCIUM 40MG TABLET PO SCH (20:48)
[2023-06-30] MEDS: LOSARTAN 50 MG TABLET PO SCH (20:48)
[2023-06-30] MEDS: EPOETIN ALFA 4000UNITS/ML VIAL SUBCUT SCH (20:53)
[2023-07-01] VITALS (11 sets, daily range): BP systolic 121–150; BP diastolic 69–87; PULSE 55–63; RESP 16–18; TEMP 97.6–98.3
[2023-07-01 06:13] LABS: BASOPHILS % 0.6 % (0.0-2.0); EOSINOPHILS % 1.2 % (0.0-5.0); HEMATOCRIT. 30.1 % (42.0-52.0); LYMPHOCYTES % 18.2 % (20.0-50.0); MEAN CORPUSCULAR HEMOGLOBIN 27.7 pg (28.0-32.0); MEAN CORPUSCULAR HGB CONC 33.3 g/dL (31.0-37.0); MEAN CORPUSCULAR VOLUME 83.3 fL (80.0-94.0); MEAN PLATELET VOLUME 8.5 fl (7.4-10.4); MONOCYTES % 12.1 % (2.0-8.0); NEUTROPHILS % 67.9 % (40.0-76.0); PLATELET 326 x1000/uL (130-400); RED BLOOD CELL COUNT 3.62 mill/uL (4.7-6.1); RED CELL DISTRIBUTION WIDTH 13.8 % (11.6-14.6); WHITE BLOOD COUNT 9.4 x1000/uL (4.5-11.0)
[2023-07-01 06:17] LABS: POTASSIUM 4.6 mEq/L (3.5-5.1)
[2023-07-01 06:29] LABS: CALCIUM 8.7 mg/dL (8.5-10.1); PHOSPHORUS 6.2 mg/dL (2.5-4.9)
[2023-07-01 07:14] LABS: CREATININE 7.1 mg/dL (0.6-1.3)
[2023-07-01] MEDS: BLOOD SUGAR DIAGNOSTIC STRIP TEST SCH (07:20)
[2023-07-01] MEDS: INSULIN LISPRO 100 UNITS/ML SUBCUT SCH (07:20)
[2023-07-01] MEDS ORDERED: CLOP-31 PO (08:39)
[2023-07-01] MEDS ORDERED: LIP40 PO (08:39)
[2023-07-01] MEDS ORDERED: FAMO-135 MT (08:39)
[2023-07-01] MEDS ORDERED: LOSA50TA41 PO (08:39)
[2023-07-01] MEDS: CLOPIDOGREL 75MG TABLET PO SCH (09:02)
[2023-07-01] MEDS: ASPIRIN 325MG TABLET PO SCH (09:02)
[2023-07-01] MEDS: CARVEDILOL 3.125 MG TABLET PO SCH (12:43)
[2023-07-01] MEDS: TAMSULOSIN HCL 0.4MG SR CAPSULE PO SCH (12:44)
== END 2023-07-01 18:34 | disposition home health service (06) | DRG 853 ==
LOC: ER 10:13 → CVICU 10:16 → 3WST 06-19 11:12 → 6EST 06-27 11:49
PROVIDERS: ADMIT Hospitalist; ATTEND Hospitalist
PROC: 027035Z Dilation of Coronary Artery, One Artery with Two Drug-eluting Intraluminal Devices, Percutaneous Approach (ICD-10-PCS; principal; 2023-06-18)
PROC: B240ZZ3 Ultrasonography of Single Coronary Artery, Intravascular (ICD-10-PCS; 2023-06-18)
PROC: 4A023N7 Measurement of Cardiac Sampling and Pressure, Left Heart, Percutaneous Approach (ICD-10-PCS; 2023-06-18)
PROC: B2111ZZ Fluoroscopy of Multiple Coronary Arteries using Low Osmolar Contrast (ICD-10-PCS; 2023-06-18)
PROC: B2151ZZ Fluoroscopy of Left Heart using Low Osmolar Contrast (ICD-10-PCS; 2023-06-18)
PROC: 5A1D70Z Performance of Urinary Filtration, Intermittent, Less than 6 Hours Per Day (ICD-10-PCS; 2023-06-21)
PROC: 02HV33Z Insertion of Infusion Device into Superior Vena Cava, Percutaneous Approach (ICD-10-PCS; 2023-06-23)
PROC: B548ZZA Ultrasonography of Superior Vena Cava, Guidance (ICD-10-PCS; 2023-06-23)
PROC: B5181ZA Fluoroscopy of Superior Vena Cava using Low Osmolar Contrast, Guidance (ICD-10-PCS; 2023-06-23)
PROC: 5A1D70Z Performance of Urinary Filtration, Intermittent, Less than 6 Hours Per Day (ICD-10-PCS; 2023-06-23)
PROC: 0JH63XZ Insertion of Tunneled Vascular Access Device into Chest Subcutaneous Tissue and Fascia, Percutaneous Approach (ICD-10-PCS; 2023-06-26)
PROC: 02HV33Z Insertion of Infusion Device into Superior Vena Cava, Percutaneous Approach (ICD-10-PCS; 2023-06-26)
PROC: B5181ZA Fluoroscopy of Superior Vena Cava using Low Osmolar Contrast, Guidance (ICD-10-PCS; 2023-06-26)
PROC: 5A1D70Z Performance of Urinary Filtration, Intermittent, Less than 6 Hours Per Day (ICD-10-PCS; 2023-06-26)
PROC: 5A1D70Z Performance of Urinary Filtration, Intermittent, Less than 6 Hours Per Day (ICD-10-PCS; 2023-06-29)
PROC: 5A1D70Z Performance of Urinary Filtration, Intermittent, Less than 6 Hours Per Day (ICD-10-PCS; 2023-07-01)
DX: A41.9 Sepsis, unspecified organism (principal); E43 Unspecified severe protein-calorie malnutrition; I21.02 ST elevation (STEMI) myocardial infarction involving left anterior descending coronary artery; N17.0 Acute kidney failure with tubular necrosis; I21.09 ST elevation (STEMI) myocardial infarction involving other coronary artery of anterior wall; N18.4 Chronic kidney disease, stage 4 (severe); E87.20 Acidosis, unspecified; E78.5 Hyperlipidemia, unspecified; I12.9 Hypertensive chronic kidney disease with stage 1 through stage 4 chronic kidney disease, or unspecified chronic kidney disease; E87.5 Hyperkalemia; E11.22 Type 2 diabetes mellitus with diabetic chronic kidney disease; N40.0 Benign prostatic hyperplasia without lower urinary tract symptoms; D64.9 Anemia, unspecified; Z68.27 Body mass index [BMI] 27.0-27.9, adult; Z82.49 Family history of ischemic heart disease and other diseases of the circulatory system; Z83.3 Family history of diabetes mellitus; Z79.4 Long term (current) use of insulin
CPT/HCPCS: 36415; 36556; 36558; 36589; 36600; 71045; 76770; 76937; 77001; 80048; 80053; 80061; 80202; 81003; 82375; 82550; 82805; 82962; 83036; 83735; 83880; 84100; 84145; 84484; 85025; 85347; 86705; 86706; 86709; 86803; 87340; 90935; 92928; 92978; 93005; 93306; 93458; 93970; 97162; 97165; 97530; 99152; 99153; 99291; C1725; C1750; C1752; C1753; C1769; C1874; C1887; C1893; J0692; J0885; J1327; J1642; J1644; J1815; J2250; J2405; J3010; J3370; J3475; J3490; J7030; J7060; Q9967; G0500